=== PATIENT | female | born 1970 | race Caucasian/White ===

== ENCOUNTER 2022-08-19 10:35 | Emergency (ER) | payer BC ==
[~2022-08-19] VITALS: Ht 160 cm; Wt 74.8 kg
[2022-08-19 11:11] VITALS: BP_SYST 130
--- NOTE | 2022-08-19 14:20 | NUR ---
Padmini mcgraw in [facility] - 08/19/[email or web address] Perkins evaluating patient in the triage room
[2022-08-19] MEDS ORDERED: IBUPROFEN 800 MG TABLET PO ONE (14:30)
== END 2022-08-19 14:45 | disposition left against medical advice (07) ==
LOC: SED 10:35
DX: J02.9 Acute pharyngitis, unspecified (principal); R05.9 Cough, unspecified; R50.9 Fever, unspecified; Z53.21 Procedure and treatment not carried out due to patient leaving prior to being seen by health care provider